=== PATIENT | female | born 1985 | race Hispanic/Latino ===

== ENCOUNTER 2017-06-18 06:16 | Emergency (ER) | payer MEDICAID, OTHER ==
[~2017-06-18] VITALS: Ht 180.3 cm; Wt 94.1 kg
[~2017-06-18 06:16] MED LIST: WEL100 PO
[2017-06-18 06:24] VITALS: BP 128/81; PULSE 95; RESP 18; O2SAT 99
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
[2017-06-18 07:33] LABS: BASOPHILS % (AUTO) 0.3 % (0-3); EOSINOPHILS % (AUTO) 1.4 % (0-5); MONOCYTES % (AUTO) 5.3 % (4-12); Mean Corpuscular Hemoglobin 31.6 pg (27.0-35.0); Mean Corpuscular Volume 93.5 fL (81-100); NEUTROPHILS % (AUTO) 70.2 % (40-74); Platelet Count 245 bil/L (150-400)
[2017-06-18] MEDS ORDERED: ESCI5SOL4 PO (08:13)
[2017-06-18] MEDS ORDERED: SPIR50TA2 PO (08:13)
[2017-06-18] MEDS ORDERED: ELVI1TAB3 PO (08:13)
== END 2017-06-18 14:58 | disposition home or self-care (01) ==
LOC: EDSEX → SED 06:16
DX: R45.851 Suicidal ideations (principal); F32.9 Major depressive disorder, single episode, unspecified; J45.909 Unspecified asthma, uncomplicated; F12.10 Cannabis abuse, uncomplicated; Z87.890 Personal history of sex reassignment; Z79.818 Long term (current) use of other agents affecting estrogen receptors and estrogen levels; Z21 Asymptomatic human immunodeficiency virus [HIV] infection status
CPT/HCPCS: 36415; 80053; 82075; 84443; 85025; 90791; 99284; G0480

== ENCOUNTER 2017-06-18 22:51 | Emergency (ER) | payer OTHER ==
[~2017-06-18] VITALS: Ht 180.3 cm; Wt 95.5 kg
[~2017-06-18 22:51] MED LIST changes: +ELVI1TAB3 PO; +ESCI5SOL4 PO; +SPIR50TA2 PO
[2017-06-18 22:55] VITALS: BP 119/70; PULSE 98; RESP 16; O2SAT 98
== END 2017-06-18 23:20 | disposition left against medical advice (07) ==
LOC: EDSEX 22:51 → SED 22:51
DX: M79.641 Pain in right hand (principal); W22.8XXA Striking against or struck by other objects, initial encounter; Y93.9 Activity, unspecified; Y92.59 Other trade areas as the place of occurrence of the external cause; Y99.8 Other external cause status

== ENCOUNTER 2017-06-21 05:37 | Emergency (ER) | payer OTHER ==
[~2017-06-21] VITALS: Ht 180.3 cm; Wt 95.5 kg
[2017-06-21 05:42] VITALS: BP 124/83; PULSE 114; RESP 16; O2SAT 98
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
--- NOTE | 2017-06-21 07:37 | DRSVH ---
PROCEDURE: X-RAY CHEST, TWO VIEWS ([id number]) INDICATIONS: 32 year-old female with cough. TECHNIQUE: 2 views of the chest were acquired. COMPARISON: [facility], CR, ABD ACUTE SERIES, 07/23/2012, 7:02. [facility], RG, CHEST 2VW, 04/30/2005, 10:02. FINDINGS: Surgical changes and devices: Cholecystectomy clips are now present. Lungs and pleura: No pleural effusions or pneumothorax. Lungs are clear. Mediastinum: Mediastinal contours are normal. Heart size is normal. Bones and chest wall: No suspicious bony abnormalities. Soft tissues appear unremarkable. IMPRESSION: No acute cardiopulmonary disease. Dictated by: Tawanda Marshall M.D. on 06/21/2017 at 7:35 Approved by: Tawanda Marshall M.D. on 06/21/2017 at 7:36
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
[2017-06-21] MEDS ORDERED: Lactulose 20 Gm/30 mL 30 mL Syrup PO ONE (07:45)
[2017-06-21 08:50] VITALS: BP 124/83; PULSE 114; RESP 16; O2SAT 98
== END 2017-06-21 08:51 | disposition home or self-care (01) ==
LOC: SED 05:37
DX: F43.20 Adjustment disorder, unspecified (principal); R45.851 Suicidal ideations; F17.200 Nicotine dependence, unspecified, uncomplicated; J45.909 Unspecified asthma, uncomplicated; F12.10 Cannabis abuse, uncomplicated; F41.9 Anxiety disorder, unspecified; Z87.890 Personal history of sex reassignment; Z21 Asymptomatic human immunodeficiency virus [HIV] infection status